=== PATIENT | female | born 1995 | race Caucasian/White ===

== ENCOUNTER 2019-08-22 15:25 | Emergency (ER) | payer BC, MEDICAID ==
[~2019-08-22] VITALS: Ht 162.6 cm; Wt 81.0 kg
[2019-08-22 15:50] VITALS: BP 151/72
== END 2019-08-22 19:50 | disposition left against medical advice (07) ==
LOC: ER 15:25
DX: K62.5 Hemorrhage of anus and rectum (principal); Z53.21 Procedure and treatment not carried out due to patient leaving prior to being seen by health care provider